=== PATIENT | female | born 1995 | race Caucasian/White ===

== ENCOUNTER 2016-11-30 14:05 | Emergency (ER) | payer BC ==
[2016-11-30 14:10] VITALS: BP 122/80
--- NOTE | 2016-11-30 15:16 | UC ---
Cardiac HPI - HPI Summary HPI Summary: 21 year old female with chest pain. states 4 hours ago had a ten minute episode up sharp left chest pains that resolved and since then has "pressure" feeling in right upper arm. Pain was 8/10 at about 9:45am and went away . Now it is a 0 /10. no sob, no holman, no palpitations, no sweating, no cough, increased stress at school that is mild to moderate. no GI disturbance / GERD. no recent long trips [ End ] - History of Current Complaint Chief Complaint: UCChestPain Stated Complaint: CHEST PAIN,RIGHT ARM PAIN Time Seen by Provider: 11/30/16 15:04 Hx Obtained From: Patient Hx Last Menstrual Period: 11/16/16 Onset/Duration: Sudden Onset Timing: Intermittent Episodes Lasting: Initial Severity: Mild Current Severity: None Chest Pain Location: Mid Sternal Character: Irregular Aggravating Factor(s): Exertion Alleviating Factor(s): Rest Associated Signs & Symptoms: Positive: Negative, Chest Pain - Risk Factors Pulmonary Embolism Risk Factors: Oral Contraceptives Cardiac Risk Factors: Negative Atrial Fibrillation: Negative TAD Risk Factors: Negative - Allergy/Home Medications Allergies/Adverse Reactions: Allergies Allergy/AdvReac Type Severity Reaction Status Date / Time No Known Allergies Allergy Verified 11/30/16 14:10 Home Medications: Home Medications Norethindrone Acet & Eth Estra [Amy 1.5/30 1.5-30 mg-Mcg] 1 tab PO DAILY 11/30 [History Confirmed 11/30/16] PMH/Surg Hx/FS Hx/Imm Hx Previously Healthy: Yes - Surgical History Surgical History: None - Family History Known Family History: Positive: None Negative: Cardiac Disease - Social History Occupation: Student Lives: Dormitory/Roommates Alcohol Use: Weekly Substance Use Type: None Smoking Status (MU): Never Smoked Tobacco Review of Systems Constitutional: Negative Skin: Negative Eyes: Negative ENT: Negative Respiratory: Negative Cardiovascular: Chest Pain Gastrointestinal: Negative Genitourinary: Negative Motor: Negative Neurovascular: Negative Musculoskeletal: Negative Neurological: Negative Psychological: Anxious Is Patient Immunocompromised?: No All Other Systems Reviewed And Are Negative: Yes Physical Exam Triage Information Reviewed: Yes Appearance: Well-Appearing, No Pain Distress, Well-Nourished Vital Signs: Initial Vital Signs Temp 98.8 F 11/30/16 14:07 Pulse 98 11/30/16 14:07 Resp 16 11/30/16 14:07 BP 122/80 11/30/16 14:07 Pulse Ox 100 11/30/16 14:07 Vital Signs Reviewed: Yes Eye Exam: Normal ENT Exam: Normal Dental Exam: Normal Neck exam: Normal Neck: Positive: 1 Respiratory Exam: Normal Cardiovascular Exam: Normal Abdominal Exam: Normal Musculoskeletal Exam: Normal Neurological Exam: Normal Psychological Exam: Normal Skin Exam: Normal - Assessment/Plan Course Of Treatment: chest pain resolved -- anxiety or stress will be the Dx at this time. has not occurred again. chest xray and EKG normal . VSS. no risk factors besides OCP but has not had HOLMAN or other concerns. If sx return in any way then she will go to ED but declined ED at this time and aware of risks of delayed treatment. she has f/u with PCP / rheum in 5 days and will keep that. She is aware we cant draw stat labs to r/o [place] but with low risk will d/c home to f/u with PCP - Clinical Impression Provider Diagnoses: atypical chest pain / anxiety Discharge - Discharge Plan Condition: Good Disposition: HOME Patient Education Materials: Chest Pain (ED) Referrals: Non Staff,Doctor [Primary Care Provider] - 4 Days Additional Instructions: As we discussed if your symptoms return go to the Emergency Room .
--- NOTE | 2016-11-30 15:46 | RAD ---
INDICATION: 10 minute episode of sharp LEFT chest pain. Now has pressure with extension to the RIGHT upper arm. COMPARISON: No relevant prior exams available on the [facility] for comparison. TECHNIQUE: Dual energy PA and routine lateral views of the chest were obtained. REPORT: Clear lungs and pleural spaces. Negative for pneumothorax. The heart, pulmonary vasculature, and mediastinal contours are unremarkable. Unremarkable osseous structures and soft tissue contours. IMPRESSION: No evidence for acute intrathoracic disease.
== END 2016-11-30 15:46 | disposition home or self-care (01) ==
LOC: UCCORT 14:05
DX: R07.89 Other chest pain (principal)
CPT/HCPCS: 71020; 93005; 99202; G0463

== ENCOUNTER 2016-12-15 11:45 | Emergency (ER) | payer BC ==
[2016-12-15 13:48] VITALS: BP 109/77
== END 2016-12-15 14:48 | disposition home or self-care (01) ==
LOC: UCCORT 11:45
DX: R05 Cough (principal)
CPT/HCPCS: 99212; G0463

== ENCOUNTER 2017-10-24 18:11 | Emergency (ER) | payer BC ==
[2017-10-24 18:53] VITALS: BP 119/71
--- NOTE | 2017-10-24 19:35 | UC ---
Abdominal Pain Female HPI - HPI Summary HPI Summary: 22-year-old female presents with 2 day history of epigastric pain that occasionally radiates through to her back. Describes pain as intermittent episodes of sharp pain that occurs multiple times an hour. Associated with 1 episode of loose stool yesterday and some mild nausea today. 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 Denies fever, chills, vomiting, blood in stool, melena, dysuria, frequency, urgency, hematuria, flank pain, dyspareunia, or vaginal discharge. Last menstrual period was approximately 3 weeks ago. She use oral control pill and denies missing any doses. States that she has had some episodes in the past of abdominal cramping and diarrhea following eating and has a GI appointment in January or February to evaluate this. States current pain differs from these previous episodes. - History of Current Complaint Chief Complaint: UCGI Stated Complaint: ABDOMINAL PAIN Time Seen by Provider: 10/24/17 19:15 Hx Obtained From: Patient Hx Last Menstrual Period: PER PT "3 WEEKS AGO" ?: No Onset/Duration: Sudden Onset, Lasting Days - 2 Timing: Intermittent Episodes Lasting: - seconds to minutes Severity Initially: Moderate Severity Currently: Moderate Pain Intensity: 8 Location: Epigastric Radiates to: Back Character: Sharp Aggravating Factor(s): Nothing Alleviating Factor(s): Nothing Associated Signs and Symptoms: Positive: Nausea, Diarrhea. Negative: Fever, Chest Pain, Dizzy, Constipation, Blood in Stool, Urinary Symptoms, Vaginal Bleeding, Vaginal Discharge, Vomiting Allergies/Adverse Reactions: Allergies Allergy/AdvReac Type Severity Reaction Status Date / Time No Known Allergies Allergy Verified 10/24/17 18:58 PMH/Surg Hx/FS Hx/Imm Hx - Additional Past Medical History Additional PMH: Noncontributory Previously Healthy: Yes - Surgical History Surgical History: None - Family History Family History: Aunt with gallbladder disease otherwise noncontributory. - Social History Occupation: Student Lives: Dormitory/Roommates Alcohol Use: Weekly Alcohol Amount: weekends Substance Use Type: None Smoking Status (MU): Never Smoked Tobacco - Immunization History Most Recent Influenza Vaccination: none 2017 Most Recent Tetanus Shot: UTD Review of Systems Constitutional: Negative Skin: Negative Respiratory: Negative Cardiovascular: Negative Gastrointestinal: Abdominal Pain, Diarrhea, Other - See history of present illness Genitourinary: Negative Is Patient Immunocompromised?: No All Other Systems Reviewed And Are Negative: Yes Physical Exam Triage Information Reviewed: Yes Appearance: Well-Appearing, No Pain Distress, Well-Nourished Vital Signs: Initial Vital Signs Temp 99.1 F 10/24/17 18:46 Pulse 114 10/24/17 18:46 Resp 16 10/24/17 18:46 BP 119/71 10/24/17 18:46 Pulse Ox 100 10/24/17 18:46 Vital Signs Reviewed: Yes Respiratory: Positive: Lungs clear, Normal breath sounds, No respiratory distress Cardiovascular: Positive: RRR, No Murmur, Brisk Capillary Refill, Tachycardia Abdomen Description: Positive: No Organomegaly, Soft, Other: - Mild tenderness over the epigastrium and right upper quadrant.. Negative: CVA Tenderness (R), CVA Tenderness (L), Distended, Guarding Bowel Sounds: Positive: Present Neurological: Positive: Alert Skin Exam: Normal Abd Pain Female Course/Dx - Course Course Of Treatment: 22-year-old female with a 2 day history of sharp, intermittent epigastric pain with some mild nausea and one episode of diarrhea. Exam revealed patient to be in no acute distress however she did have some mild epigastric and right upper quadrant tenderness. Temperature 99.1 and she was tachycardic at 114 beats per minute. Urinalysis showed trace blood. Urine was negative. Recommending evaluation in the emergency room. Patient is agreeable to this and will be transferring via private vehicle. Patient was advised to remain nothing by mouth. - Differential Dx/Diagnosis Differential Diagnosis: Gall Bladder Disease, Pancreatitis, Peptic Ulcer Disease Provider Diagnoses: Acute epigastric pain Discharge - Sign-Out/Discharge Documenting (check all that apply): Patient Departure All imaging exams completed and their final reports reviewed: No Studies - Discharge Plan Condition: Stable Disposition: HOME-RECOMMEND TO ED Patient Education Materials: Epigastric Pain (ED) Referrals: Non Staff,Doctor [Primary Care Provider] - Additional Instructions: Please go directly to [facility] Emergency Room for further evaluation. Do not eat or drink anything. - Billing Disposition and Condition Condition: STABLE Disposition: Home-Recommend to ED
== END 2017-10-24 19:52 | disposition home health service (06) ==
LOC: UCCORT 18:11
DX: R10.13 Epigastric pain (principal); R10.811 Right upper quadrant abdominal tenderness; R00.0 Tachycardia, unspecified; R11.0 Nausea
CPT/HCPCS: 81003; 84702; 99212; G0463